=== PATIENT | female | born 1935 | race Caucasian/White ===

== ENCOUNTER 2017-11-03 15:08 | Emergency (ER) | payer MEDICARE, MEDICAID ==
[~2017-11-03] VITALS: Ht 162.6 cm; Wt 80.0 kg
[~2017-11-03 15:08] MED LIST: ALB0.5UD IH; ALLO100T PO; CALC-723 PO; CARV25TA2 PO; CITA-311 PO; COU1T PO; FLUT1BLS3 INH; FURO-150 PO; GLIP5TAB13 PO; LISI-600 PO; OMEG10006 PO; PAT0.1OS OP; POTA8CAP9 PO; SIMV20TA5 PO; VIT1CAPS9 PO; XAL0.005OS OP
[2017-11-03] MEDS ORDERED: bacitracin 15gm ointment TP ONE (15:25)
[2017-11-03 17:13] VITALS: BP 189/113
== END 2017-11-03 17:16 | disposition home or self-care (01) ==
LOC: ER 15:09
DX: S00.01XA Abrasion of scalp, initial encounter (principal); M54.2 Cervicalgia; I48.91 Unspecified atrial fibrillation; I50.9 Heart failure, unspecified; E11.9 Type 2 diabetes mellitus without complications; M19.90 Unspecified osteoarthritis, unspecified site; Z90.49 Acquired absence of other specified parts of digestive tract; Z88.2 Allergy status to sulfonamides; Z88.0 Allergy status to penicillin; Z86.73 Personal history of transient ischemic attack (TIA), and cerebral infarction without residual deficits; Z79.899 Other long term (current) drug therapy; Z79.01 Long term (current) use of anticoagulants; W18.30XA Fall on same level, unspecified, initial encounter; Y93.01 Activity, walking, marching and hiking; Y92.89 Other specified places as the place of occurrence of the external cause; Y99.9 Unspecified external cause status
CPT/HCPCS: 70450; 72125; 82948; 93005; 99284; A6449

== ENCOUNTER 2019-05-20 10:53 | Emergency (ER) | payer MEDICARE, MEDICAID ==
[~2019-05-20] VITALS: Ht 154.9 cm; Wt 71.7 kg
[~2019-05-20 10:53] MED LIST changes: +POTA8CAP20 PO; -POTA8CAP9 PO
--- NOTE | 2019-05-20 11:40 | NUR ---
BACK FROM CT
--- NOTE | 2019-05-20 12:17 | NUR ---
BREAK NOTE:PATIENT RECEIVED ON BED AWAKE,VISITOR AT BEDSIDE.
[2019-05-20 12:22] VITALS: BP 175/72
== END 2019-05-20 13:01 | disposition home or self-care (01) ==
LOC: ER 10:54
DX: S11.81XA Laceration without foreign body of other specified part of neck, initial encounter (principal); S09.8XXA Other specified injuries of head, initial encounter; M25.551 Pain in right hip; M25.562 Pain in left knee; I48.91 Unspecified atrial fibrillation; I50.9 Heart failure, unspecified; E11.9 Type 2 diabetes mellitus without complications; M19.90 Unspecified osteoarthritis, unspecified site; Z88.2 Allergy status to sulfonamides; Z86.73 Personal history of transient ischemic attack (TIA), and cerebral infarction without residual deficits; Z88.0 Allergy status to penicillin; Z79.899 Other long term (current) drug therapy; Z90.49 Acquired absence of other specified parts of digestive tract; W18.09XA Striking against other object with subsequent fall, initial encounter; Y93.89 Activity, other specified; Y92.89 Other specified places as the place of occurrence of the external cause; Y99.8 Other external cause status
CPT/HCPCS: 70450; 73502; 73564; 93005; 99284

== ENCOUNTER 2022-10-04 09:00 | Emergency (ER) | payer MEDICARE, MEDICAID ==
[~2022-10-04] VITALS: Ht 154.9 cm; Wt 63.5 kg
[~2022-10-04 09:00] MED LIST changes: +ACET325T55 PO; -ALLO100T PO; +CHOL20002 PO; +CLON0.1T2 PO; -COU1T PO; +FLUT1AER PO; -FLUT1BLS3 INH; +GABA-530 PO; -GLIP5TAB13 PO; +GLIP5TAB26 PO; +LATA2.5D14 OP; -LISI-600 PO; +NOR5T PO; -OMEG10006 PO; -PAT0.1OS OP; +ROBDML PO; +SIMV-42 PO; -SIMV20TA5 PO; +WARF3TAB56 PO; -XAL0.005OS OP; +ZAFI10TA2 PO
--- NOTE | 2022-10-04 09:32 | NUR ---
to ct scan.
[2022-10-04 09:40] LABS: BASOPHILS # (AUTO) 0.1 X10'3 (0-0.2); BASOPHILS % (AUTO) 0.6 % (0-1); EOSINOPHILS # (AUTO) 0.5 X10'3 (0-0.9); EOSINOPHILS % (AUTO) 4.5 % (0-6); HEMATOCRIT 36.4 % (35.0-45.0); HEMOGLOBIN 11.9 g/dl (12.0-16.0); LYMPHOCYTES # (AUTO) 0.7 X10'3 (1.1-4.8); LYMPHOCYTES % (AUTO) 6.5 % (21-51); MEAN CORPUSCULAR HEMOGLOBIN 31.5 PG (27.0-31.0); MEAN CORPUSCULAR HGB CONC 32.6 g/dL (33.0-36.5); MEAN CORPUSCULAR VOLUME 96.5 FL (78-98); MEAN PLATELET VOLUME 7.8 FL (7.4-10.4); MONOCYTES # (AUTO) 0.8 X10'3 (0-0.9); MONOCYTES % (AUTO) 7.5 % (2-12); NEUTROPHILS # (AUTO) 8.5 X10'3 (1.8-7.7); NEUTROPHILS % (AUTO) 80.9 % (42-75); PLATELET COUNT 247 X10'3 (140-440); RED BLOOD COUNT 3.77 X10'6 (4.20-5.60); WHITE BLOOD COUNT 10.5 X10'3 (4.5-11.0)
[2022-10-04 09:52] LABS: ALANINE AMINOTRANSFERASE 13 U/L (12-78); ALBUMIN 3.2 G/DL (3.4-5.0); ALBUMIN/GLOBULIN RATIO 0.7 (1.1-1.5); ALKALINE PHOSPHATASE 103 IU/L (46-116); ANION GAP 10 (8-16); ASPARTATE AMINO TRANSFERASE 16 U/L (10-37); BILIRUBIN,TOTAL 0.4 MG/DL (0.1-1.0); BLOOD UREA NITROGEN 56 MG/DL (7-18); BUN/CREATININE RATIO 26.7 (6.6-38.0); CALCIUM 9.4 MG/DL (8.5-10.1); CHLORIDE 112 MMOL/L (99-107); GLUCOSE 108 MG/DL (70-104); POTASSIUM 4.1 MMOL/L (3.5-5.1); SODIUM 143 MMOL/L (135-145); TOTAL CARBON DIOXIDE 20.6 MMOL/L (24-32); TOTAL PROTEIN 7.9 G/DL (6.4-8.2); eGFR 22 ML/MIN
[2022-10-04] MEDS ORDERED: acetaminophen 325mg tablet PO ONE (11:10)
[2022-10-04] MEDS ORDERED: gelatin sponge, absorbable (Gelfoam 12-7MM) sponge TP ONE (11:55)
--- NOTE | 2022-10-04 12:15 | NUR ---
INFORMED DR HARDING THAT THERE IS NO ORDER FOR URINE ,PT HAS FREQUENT URINATION ? PER MD ITS NOT NEEDED.
[2022-10-04 13:29] VITALS: BP 147/65
== END 2022-10-04 13:37 | disposition home or self-care (01) ==
LOC: ER 09:01
DX: S00.81XA Abrasion of other part of head, initial encounter (principal); E11.9 Type 2 diabetes mellitus without complications; Z88.2 Allergy status to sulfonamides; Z88.0 Allergy status to penicillin; Z79.899 Other long term (current) drug therapy; Z88.8 Allergy status to other drugs, medicaments and biological substances; I11.0 Hypertensive heart disease with heart failure; W18.39XA Other fall on same level, initial encounter; Y93.89 Activity, other specified; Y92.89 Other specified places as the place of occurrence of the external cause; Y99.8 Other external cause status
CPT/HCPCS: 36415; 70450; 70486; 72125; 80053; 85025; 85610; 93005; 99285; A6222; A6258

== ENCOUNTER 2023-01-05 12:40 | Emergency (ER) | payer MEDICARE, MEDICAID ==
[~2023-01-05] VITALS: Ht 156.2 cm; Wt 56.4 kg
[~2023-01-05 12:40] MED LIST changes: -ALB0.5UD IH; +ALBU2.5V10 NEB; -CITA-311 PO; +CITA10TA22 PO; -CLON0.1T2 PO; -FLUT1AER PO; -FURO-150 PO; +FURO20TA4 PO; -GLIP5TAB26 PO; +HYDR28.316 RC; +IPRA3AMP31 NEB; +LATA2.5D14 EACHEYE; -LATA2.5D14 OP; +LISI10TA27 PO; -NOR5T PO; -POTA8CAP20 PO; +POTA8TAB69 PO; -ROBDML PO; -SIMV-42 PO; +SIMV-45 PO; +SODI325T PO; +WARF3TAB8 PO; +hyDRALAzine tablet PO
[2023-01-05 13:38] LABS: BASOPHILS # (AUTO) 0.1 X10'3 (0-0.2); EOSINOPHILS # (AUTO) 0.3 X10'3 (0-0.9); EOSINOPHILS % (AUTO) 5.8 % (0-6); HEMOGLOBIN 10.3 g/dl (12.0-16.0); LYMPHOCYTES # (AUTO) 0.5 X10'3 (1.1-4.8); LYMPHOCYTES % (AUTO) 8.9 % (21-51); MEAN CORPUSCULAR HEMOGLOBIN 31.9 PG (27.0-31.0); MEAN CORPUSCULAR HGB CONC 32.2 g/dL (33.0-36.5); MEAN CORPUSCULAR VOLUME 99.2 FL (78-98); MEAN PLATELET VOLUME 7.9 FL (7.4-10.4); MONOCYTES # (AUTO) 0.5 X10'3 (0-0.9); MONOCYTES % (AUTO) 9.6 % (2-12); NEUTROPHILS # (AUTO) 4.1 X10'3 (1.8-7.7); NEUTROPHILS % (AUTO) 74.7 % (42-75); PLATELET COUNT 209 X10'3 (140-440); RED BLOOD COUNT 3.23 X10'6 (4.20-5.60); RED CELL DISTRIBUTION WIDTH 16.6 % (11.5-14.5); WHITE BLOOD COUNT 5.5 X10'3 (4.5-11.0)
[2023-01-05 13:41] LABS: ALANINE AMINOTRANSFERASE 16 U/L (12-78); ALBUMIN/GLOBULIN RATIO 0.8 (1.1-1.5); ALKALINE PHOSPHATASE 90 IU/L (46-116); ANION GAP 8 (8-16); ASPARTATE AMINO TRANSFERASE 21 U/L (10-37); BILIRUBIN,TOTAL 0.5 MG/DL (0.1-1.0); BLOOD UREA NITROGEN 28 MG/DL (7-18); BUN/CREATININE RATIO 18.3 (10.0-20.0); CHLORIDE 105 MMOL/L (99-107); CREATININE 1.53 MG/DL (0.40-0.90); GLUCOSE 99 MG/DL (70-104); POTASSIUM 4.1 MMOL/L (3.5-5.1); SODIUM 142 MMOL/L (135-145); TOTAL CARBON DIOXIDE 28.8 MMOL/L (24-32); TOTAL PROTEIN 6.8 G/DL (6.4-8.2); eGFR 32 ML/MIN
--- NOTE | 2023-01-05 14:21 | NUR ---
Dr. Freeman at [facility].
[2023-01-05] MEDS ORDERED: ipratropium/albuterol 3ml nebule NEB ONE (15:10)
[2023-01-05 17:09] VITALS: BP 141/69
== END 2023-01-05 17:09 | disposition home or self-care (01) ==
LOC: ER 12:41
DX: J44.1 Chronic obstructive pulmonary disease with (acute) exacerbation (principal); I50.9 Heart failure, unspecified; E11.9 Type 2 diabetes mellitus without complications; Z88.8 Allergy status to other drugs, medicaments and biological substances; Z88.0 Allergy status to penicillin; Z88.1 Allergy status to other antibiotic agents; Z79.899 Other long term (current) drug therapy; Z79.1 Long term (current) use of non-steroidal anti-inflammatories (NSAID); Z79.2 Long term (current) use of antibiotics
CPT/HCPCS: 36415; 71045; 80053; 83880; 84484; 85025; 93005; 94640; 94760; 99285

== ENCOUNTER 2023-02-14 12:28 | Inpatient (IN) | payer MEDICARE, MEDICAID ==
[~2023-02-14] VITALS: Ht 156.2 cm; Wt 60.9 kg
[2023-02-14 12:54] LABS: BASOPHILS # (AUTO) 0.1 X10'3 (0-0.2); BASOPHILS % (AUTO) 0.8 % (0-1); EOSINOPHILS # (AUTO) 0.1 X10'3 (0-0.9); EOSINOPHILS % (AUTO) 1.7 % (0-6); HEMATOCRIT 30.5 % (35.0-45.0); HEMOGLOBIN 9.8 g/dl (12.0-16.0); LYMPHOCYTES # (AUTO) 0.3 X10'3 (1.1-4.8); LYMPHOCYTES % (AUTO) 4.2 % (21-51); MEAN CORPUSCULAR HEMOGLOBIN 30.8 PG (27.0-31.0); MEAN CORPUSCULAR VOLUME 96.1 FL (78-98); MEAN PLATELET VOLUME 7.8 FL (7.4-10.4); MONOCYTES # (AUTO) 0.9 X10'3 (0-0.9); NEUTROPHILS # (AUTO) 6.8 X10'3 (1.8-7.7); NEUTROPHILS % (AUTO) 82.3 % (42-75); PLATELET COUNT 184 X10'3 (140-440); RED BLOOD COUNT 3.17 X10'6 (4.20-5.60); RED CELL DISTRIBUTION WIDTH 15.6 % (11.5-14.5); WHITE BLOOD COUNT 8.2 X10'3 (4.5-11.0)
[2023-02-14] MEDS ORDERED: ipratropium/albuterol 3ml nebule NEB ONE (13:10)
[2023-02-14 13:15] LABS: ALANINE AMINOTRANSFERASE 12 U/L (12-78); ALBUMIN 2.7 G/DL (3.4-5.0); ALBUMIN/GLOBULIN RATIO 0.7 (1.1-1.5); ALKALINE PHOSPHATASE 107 IU/L (46-116); ANION GAP 7 (8-16); ASPARTATE AMINO TRANSFERASE 15 U/L (10-37); BILIRUBIN,TOTAL 0.5 MG/DL (0.1-1.0); BLOOD UREA NITROGEN 44 MG/DL (7-18); BUN/CREATININE RATIO 23.8 (10.0-20.0); CALCIUM 8.6 MG/DL (8.5-10.1); CHLORIDE 107 MMOL/L (99-107); CREATININE 1.85 MG/DL (0.40-0.90); GLUCOSE 119 MG/DL (70-104); POTASSIUM 3.7 MMOL/L (3.5-5.1); SODIUM 142 MMOL/L (135-145); TOTAL CARBON DIOXIDE 27.6 MMOL/L (24-32); TOTAL PROTEIN 6.4 G/DL (6.4-8.2); eGFR 26 ML/MIN
--- NOTE | 2023-02-14 13:22 | NUR ---
RT AT BEDSIDE TO PROVIDE BREATHING TX.
[2023-02-14] MEDS ORDERED: CefTRIAXone 2gm/D5W 50ml BAG 50 ML IV ONE (13:50)
[2023-02-14] MEDS ORDERED: methylPREDNISolone sod succ 125mg/2ml vial IV ONE (13:55)
[2023-02-14] MEDS ORDERED: methylPREDNISolone sod succ/PF 40mg inj. IV ONE (13:55)
[2023-02-14] MEDS ORDERED: potassium Cl 20 mEq SR tablet PO PRN ×4 (14:00→14:05)
[2023-02-14] MEDS ORDERED: mag hydrox/Alum hydrox/simeth 30ml oral suspension PO PRN (14:00)
[2023-02-14] MEDS ORDERED: HYDROcodone/acetaminophen 5mg/325mg tablet PO PRN (14:00)
[2023-02-14] MEDS ORDERED: ondansetron/PF 4mg/2ml inj IV PRN ×2 (14:00→14:05)
[2023-02-14] MEDS ORDERED: magnesium 4gm in 100ml NS 100 ML IV PRN ×2 (14:00→14:05)
[2023-02-14] MEDS ORDERED: potassium Cl 40MEQ/1/2NS 520ml 520 ML IV PRN ×2 (14:00→14:05)
[2023-02-14] MEDS ORDERED: magnesium hydroxide 30ml (MOM) UD suspension PO PRN (14:00)
[2023-02-14] MEDS ORDERED: magnesium Cl slow-release 64mg tablet PO PRN ×2 (14:00→14:05)
[2023-02-14] MEDS ORDERED: acetaminophen 325mg tablet PO PRN ×3 (14:00→14:05)
[2023-02-14] MEDS ORDERED: magnesium 2GM in 50ml NS 50 ML IV PRN ×2 (14:00→14:05)
[2023-02-14] MEDS ORDERED: morphine 2 MG/ML inj. syringe IV PRN (14:00)
[2023-02-14] MEDS ORDERED: HYDROcodone/acetaminophen 10/325mg tab PO PRN (14:00)
[2023-02-14 14:10] LABS: CLARITY,URINE TURBID (Clear); COLOR,URINE YELLOW (Yellow); GLUCOSE, URINE NEGATIVE (Neg); KETONES,URINE NEGATIVE (Neg); LEUKOCYTE ESTERASE ,URINE LARGE (Neg); NITRITES, URINE NEGATIVE (Neg); OCCULT BLOOD,URINE LARGE (Neg); PROTEIN,URINE >=300 mg/dl (Neg); UROBILINOGEN,URINE 0.2 E.U/dL (0.2-1.0)
[2023-02-14 14:12] LABS: UA COLLECTION TYPE STRAIGHT CATH
[2023-02-14 14:19] LABS: BACTERIA,URINE 4+ /HPF (Neg); MUCUS STRANDS NONE SEEN /LPF (Neg); RENAL CELLS, URINE FEW /HPF; SQUAMOUS EPITHELIAL CELL,UR NONE SEEN /LPF (FEW); WBC CLUMPS,URINE MANY /HPF (NEGATIVE); WBC,URINE TNTC /HPF (0-4)
--- NOTE | 2023-02-14 15:06 | NUR ---
CALL TO LAB STATING BLOOD CULTURES WERE CANCELLED.
[2023-02-14] MEDS: methylPREDNISolone sod succ/PF 40mg inj. IV SCH ×2 (15:09→21:01)
[2023-02-14 19:20] VITALS: BP 162/85
[2023-02-14] MEDS ORDERED: enoxaparin 40mg/0.4ml syringe SQ SCH (20:00)
[2023-02-14] MEDS: K and/or MAG REPLACEMENT MC SCH (20:00)
[2023-02-14] MEDS: docusate sod 100mg capsule PO SCH (20:00)
[2023-02-14] MEDS ORDERED: FURO40TA4 PO (20:18)
[2023-02-14] MEDS ORDERED: ASCO500T28 PO (20:18)
[2023-02-14] MEDS ORDERED: OMEG-167 PO (20:18)
[2023-02-14] MEDS ORDERED: PROCHC RC (20:18)
[2023-02-14] MEDS ORDERED: HYDR-4069 PO (20:18)
[2023-02-14] MEDS ORDERED: FLUO60SO3 EACH EAR (20:18)
[2023-02-14] MEDS ORDERED: FURO-150 PO (20:18)
[2023-02-14] MEDS ORDERED: BUDE0.5A11 NEB (20:18)
[2023-02-14] MEDS ORDERED: warfarin 3mg tablet PO ONE (21:00)
[2023-02-14 22:00] VITALS: BP 179/74
[2023-02-14] MEDS: carvedilol 6.25mg tablet PO SCH (22:49)
[2023-02-14] MEDS: lisinopril 10 MG tablet PO SCH (22:50)
[2023-02-14] MEDS: hyDRALAzine 10mg tablet PO SCH (23:47)
[2023-02-14 23:51] VITALS: BP 174/93
[2023-02-15] MEDS: methylPREDNISolone sod succ/PF 40mg inj. IV SCH ×4 (01:48→22:34)
[2023-02-15 01:54] VITALS: BP 163/77
--- NOTE | 2023-02-15 06:29 | NUR ---
Problems reprioritized. Patient report given, questions answered & plan of care reviewed with KARINA AGUILAR RN.
--- NOTE | 2023-02-15 06:37 | NUR ---
Patient in room [facility] 4022. I have received report from ALDO COLLINS and had the opportunity to ask questions and assume patient care.
[2023-02-15 07:03] VITALS: BP 148/88
[2023-02-15 07:54] LABS: BASOPHILS % (AUTO) 0.1 % (0-1); EOSINOPHILS % (AUTO) 0.1 % (0-6); HEMATOCRIT 33.1 % (35.0-45.0); HEMOGLOBIN 10.5 g/dl (12.0-16.0); LYMPHOCYTES # (AUTO) 0.2 X10'3 (1.1-4.8); LYMPHOCYTES % (AUTO) 4.7 % (21-51); MEAN CORPUSCULAR HEMOGLOBIN 30.6 PG (27.0-31.0); MEAN CORPUSCULAR HGB CONC 31.8 g/dL (33.0-36.5); MEAN CORPUSCULAR VOLUME 96.2 FL (78-98); MEAN PLATELET VOLUME 8.1 FL (7.4-10.4); MONOCYTES % (AUTO) 0.7 % (2-12); NEUTROPHILS # (AUTO) 4.6 X10'3 (1.8-7.7); NEUTROPHILS % (AUTO) 94.4 % (42-75); PLATELET COUNT 177 X10'3 (140-440); RED BLOOD COUNT 3.44 X10'6 (4.20-5.60); RED CELL DISTRIBUTION WIDTH 15.8 % (11.5-14.5); WHITE BLOOD COUNT 4.9 X10'3 (4.5-11.0)
[2023-02-15] MEDS ORDERED: enoxaparin 40mg/0.4ml syringe SUBCUT SCH (08:00)
[2023-02-15] MEDS ORDERED: furosemide 40mg/4ml inj IV SCH (08:00)
[2023-02-15] MEDS: K and/or MAG REPLACEMENT MC SCH ×2 (08:00→20:00)
[2023-02-15] MEDS: furosemide 20 MG/2 ML vial IV SCH (08:07)
[2023-02-15] MEDS: CefTRIAXone/D5W-Rocephin 1gm 50 ML IV SCH (08:08)
[2023-02-15] MEDS: hyDRALAzine 10mg tablet PO SCH ×3 (08:09→23:55)
[2023-02-15] MEDS: docusate sod 100mg capsule PO SCH ×2 (08:09→20:00)
[2023-02-15] MEDS: lisinopril 10 MG tablet PO SCH ×3 (08:10→22:25)
[2023-02-15] MEDS: carvedilol 6.25mg tablet PO SCH ×2 (08:10→20:00)
[2023-02-15 08:16] LABS: ALANINE AMINOTRANSFERASE 16 U/L (12-78); ALBUMIN 2.7 G/DL (3.4-5.0); ALBUMIN/GLOBULIN RATIO 0.6 (1.1-1.5); ALKALINE PHOSPHATASE 115 IU/L (46-116); ANION GAP 11 (8-16); ASPARTATE AMINO TRANSFERASE 17 U/L (10-37); BILIRUBIN,TOTAL 0.4 MG/DL (0.1-1.0); BLOOD UREA NITROGEN 43 MG/DL (7-18); CALCIUM 8.8 MG/DL (8.5-10.1); CHLORIDE 105 MMOL/L (99-107); CREATININE 1.72 MG/DL (0.40-0.90); FERRITIN 322 NG/ML (8-252); GLUCOSE 171 MG/DL (70-104); POTASSIUM 4.2 MMOL/L (3.5-5.1); SODIUM 142 MMOL/L (135-145); TOTAL CARBON DIOXIDE 26.3 MMOL/L (24-32); eGFR 28 ML/MIN
[2023-02-15] MEDS ORDERED: ipratropium/albuterol 3ml nebule NEB PRN (08:45)
[2023-02-15] MEDS ORDERED: warfarin 3mg tablet PO SCH ×2 (08:45)
[2023-02-15] MEDS ORDERED: iron dextran complex inj. 25 MG in normal saline 50ml IV soln 49.5 ML IV ONE (09:05)
[2023-02-15 09:06] LABS: % IRON SATURATION 7 % (11-46); IRON 17 UG/DL (49-151); TOTAL IRON BINDING CAPACITY 239 UG/DL (259-388)
[2023-02-15] MEDS: OMEGA-3/DHA/EPA/FISH OIL 1 EACH CAPSULE.DR PO SCH (10:15)
[2023-02-15] MEDS: calcium carbonate/vitamin D3 tablet PO SCH ×2 (10:16→22:23)
[2023-02-15] MEDS: atorvastatin 20mg tablet PO SCH (10:16)
[2023-02-15] MEDS: carVEDilol 12.5mg tablet PO SCH ×2 (10:17→22:23)
[2023-02-15] MEDS: sodium bicarbonate 650mg tablet PO SCH (10:17)
[2023-02-15 10:29] VITALS: BP 123/74
[2023-02-15] MEDS: hydrALAZINE 25 MG tablet PO SCH ×2 (13:19→22:26)
[2023-02-15] MEDS ORDERED: furosemide 20MG tablet PO SCH (16:00)
--- NOTE | 2023-02-15 16:40 | NUR ---
DM Consult: Pt hx DM though A1C 6.3% currently on Na-restricted diet per EMR; A1C appropriate per ADA guidelines recommend no carb restriction especially given age at this time. Addendum: 02/15/23 at [address] Amended: Links added.
[2023-02-15 18:30] VITALS: BP 171/78
--- NOTE | 2023-02-15 18:40 | NUR ---
Patient in room [facility]TH[facility] 4022. I have received report from Reji COLLINS and Davidson RN and had the opportunity to ask questions and assume patient care.
--- NOTE | 2023-02-15 18:46 | NUR ---
Problems reprioritized. Patient report given TO CODY COLLINS, questions answered & plan of care reviewed with .
[2023-02-15] MEDS: ZAFIRLUKAST 10 MG PO SCH (21:00)
[2023-02-15] MEDS ORDERED: warfarin 3mg tablet PO ONE (21:00)
[2023-02-15 22:00] VITALS: BP 195/114
[2023-02-15] MEDS: ascorbic acid 500mg tablet PO SCH (22:24)
[2023-02-15] MEDS: gabapentin 100mg capsule PO SCH (22:29)
[2023-02-15] MEDS: latanoprost 0.005% 2.5ml ophthalmic drops EACHEYE SCH (22:40)
[2023-02-15] MEDS: hydrocort. acetate/pramoxine 10gm bottle RC SCH (22:41)
[2023-02-15] MEDS: HALLS - SOOTHE MENTHOL 1.8 MG cough drop LOZENGE MM PRN (23:47)
[2023-02-16 02:00] VITALS: BP 187/88
[2023-02-16] MEDS: methylPREDNISolone sod succ/PF 40mg inj. IV SCH ×4 (02:12→22:38)
[2023-02-16] MEDS ORDERED: lisinopril 10 MG tablet PO ONE (02:45)
[2023-02-16 06:00] VITALS: BP 179/83
[2023-02-16 06:13] LABS: BASOPHILS % (AUTO) 0 % (0-1); EOSINOPHILS % (AUTO) 0 % (0-6); HEMATOCRIT 34.3 % (35.0-45.0); HEMOGLOBIN 11.1 g/dl (12.0-16.0); LYMPHOCYTES # (AUTO) 0.2 X10'3 (1.1-4.8); MEAN CORPUSCULAR HEMOGLOBIN 30.8 PG (27.0-31.0); MEAN CORPUSCULAR HGB CONC 32.2 g/dL (33.0-36.5); MEAN CORPUSCULAR VOLUME 95.5 FL (78-98); MEAN PLATELET VOLUME 8.1 FL (7.4-10.4); MONOCYTES # (AUTO) 0.2 X10'3 (0-0.9); NEUTROPHILS # (AUTO) 7.9 X10'3 (1.8-7.7); PLATELET COUNT 203 X10'3 (140-440); RED BLOOD COUNT 3.59 X10'6 (4.20-5.60); RED CELL DISTRIBUTION WIDTH 15.4 % (11.5-14.5); WHITE BLOOD COUNT 8.3 X10'3 (4.5-11.0)
[2023-02-16 06:37] LABS: ALANINE AMINOTRANSFERASE 18 U/L (12-78); ALBUMIN 2.7 G/DL (3.4-5.0); ALBUMIN/GLOBULIN RATIO 0.6 (1.1-1.5); ALKALINE PHOSPHATASE 115 IU/L (46-116); ANION GAP 8 (8-16); ASPARTATE AMINO TRANSFERASE 18 U/L (10-37); BILIRUBIN,TOTAL 0.4 MG/DL (0.1-1.0); BLOOD UREA NITROGEN 52 MG/DL (7-18); BUN/CREATININE RATIO 31.1 (10.0-20.0); CHLORIDE 101 MMOL/L (99-107); CREATININE 1.67 MG/DL (0.40-0.90); GLUCOSE 227 MG/DL (70-104); SODIUM 137 MMOL/L (135-145); TOTAL CARBON DIOXIDE 27.8 MMOL/L (24-32); TOTAL PROTEIN 7.2 G/DL (6.4-8.2); eGFR 29 ML/MIN
--- NOTE | 2023-02-16 07:00 | NUR ---
Problems reprioritized. Patient report given, questions answered & plan of care reviewed with Kaykay Thomas.
--- NOTE | 2023-02-16 07:56 | NUR ---
Patient in room [facility]TH[facility] 4022B. I have received report from KARINA ROSS and had the opportunity to ask questions and assume patient care.
[2023-02-16] MEDS ORDERED: ZINC PO SCH (08:00)
[2023-02-16] MEDS ORDERED: COPPER PO SCH (08:00)
[2023-02-16] MEDS ORDERED: VIT E PO SCH (08:00)
[2023-02-16] MEDS ORDERED: VIT C PO SCH (08:00)
[2023-02-16] MEDS ORDERED: furosemide 40mg tablet PO SCH (08:00)
[2023-02-16] MEDS ORDERED: VIT A PO SCH (08:00)
[2023-02-16] MEDS: K and/or MAG REPLACEMENT MC SCH ×2 (08:00→20:00)
[2023-02-16 10:00] VITALS: BP 190/92
[2023-02-16] MEDS: CefTRIAXone/D5W-Rocephin 1gm 50 ML IV SCH (10:47)
[2023-02-16] MEDS: docusate sod 100mg capsule PO SCH ×2 (10:49→20:00)
[2023-02-16] MEDS: OMEGA-3/DHA/EPA/FISH OIL 1 EACH CAPSULE.DR PO SCH (10:49)
[2023-02-16] MEDS: atorvastatin 20mg tablet PO SCH (10:49)
[2023-02-16] MEDS: CITALOpram 10mg tablet PO SCH (10:49)
[2023-02-16] MEDS: potassium chloride 8mEq ER tablet PO SCH (10:49)
[2023-02-16] MEDS: ascorbic acid 500mg tablet PO SCH ×2 (10:49→22:45)
[2023-02-16] MEDS: calcium carbonate/vitamin D3 tablet PO SCH ×2 (10:49→22:45)
[2023-02-16] MEDS: furosemide 20 MG/2 ML vial IV SCH (11:02)
[2023-02-16] MEDS: hydrALAZINE 25 MG tablet PO SCH ×3 (11:02→22:42)
[2023-02-16] MEDS: lisinopril 10 MG tablet PO SCH ×2 (11:02→22:47)
[2023-02-16] MEDS: carVEDilol 12.5mg tablet PO SCH ×2 (11:03→22:40)
[2023-02-16] MEDS: hydrocort. acetate/pramoxine 10gm bottle RC SCH ×2 (11:18→22:48)
[2023-02-16] MEDS: iron dextran complex inj. 100 MG in normal saline 100ml IV soln 98 ML IV SCH (13:06)
--- NOTE | 2023-02-16 13:34 | NUR ---
PRESSURE ULCER EDUCATION: DEFINITION: A pressure ulcer is an area of skin that breaks down when you stay in one position too long. The constant pressure against the skin reduces the blood flow to that area and the affected tissue dies. CAUSES: "Being bedridden or in a wheelchair "Fragile skin "Having a chronic condition, such as diabetes or vascular disease "Inability to move certain parts of your body without assistance "Older age "Incontinence of urine or stool SYMPTOMS: "A reddened area that DOES NOT turn white when pressed on - this can be the beginning of a pressure ulcer "A blister, deep sore or a crater - these can be advanced pressure ulcers FIRST AID: "Relieve the pressure on this area "Keep the area clean and dry "Call your primary doctor if you see any of the above symptoms "DO NOT massage the area "DO NOT use a donut shaped or ring shaped pillow- these actually interfere with the blood flow and cause complications PREVENTION: "Check for pressure ulcers everyday "Change position at least every two hours to relieve pressure "Use items that help relieve pressure- pillows, sheepskin, foam padding, and powders. "Keep skin clean and dry "Eat healthy well balanced meals "Exercise daily IF YOU SEE ANY OF THESE SYMPTOMS WHILE IN THE HOSPITAL - TELL YOUR NURSE IMMEDIATELY. IF YOU SEE ANY OF THESE SYMPTOMS WHILE AT HOME OR HAVE ANY QUESTIONS OR CONCERNS ABOUT PRESSURE ULCERS - CALL YOUR PRIMARY DOCTOR IMMEDIATELY. Addendum: 02/16/23 at 1334 by Kaleb Obregon RN Amended: Links added.
[2023-02-16 16:16] VITALS: BP 160/102
[2023-02-16] MEDS: cholecalciferol (vitamin D3) 1,000 unit (25mcg) tablet PO SCH (16:16)
[2023-02-16] MEDS: sodium bicarbonate 650mg tablet PO SCH (16:16)
[2023-02-16 18:00] VITALS: BP 174/62
--- NOTE | 2023-02-16 18:38 | NUR ---
Problems reprioritized. Patient report given, questions answered & plan of care reviewed with KARINA ROSS.
--- NOTE | 2023-02-16 18:40 | NUR ---
Patient in room [facility]TH[facility] 4022. I have received report from Kaykay COLLINS and had the opportunity to ask questions and assume patient care.
[2023-02-16] MEDS ORDERED: warfarin 3mg tablet PO ONE (21:00)
[2023-02-16 22:00] VITALS: BP 195/106
[2023-02-16] MEDS: gabapentin 100mg capsule PO SCH (22:45)
[2023-02-16] MEDS: latanoprost 0.005% 2.5ml ophthalmic drops EACHEYE SCH (22:47)
[2023-02-16] MEDS: HALLS - SOOTHE MENTHOL 1.8 MG cough drop LOZENGE MM PRN (22:48)
[2023-02-16] MEDS: ZAFIRLUKAST 10 MG PO SCH (22:54)
[2023-02-16] MEDS: acetaminophen 325mg tablet PO PRN (22:56)
[2023-02-17] VITALS (7 sets, daily range): BP systolic 162–192; BP diastolic 71–98
[2023-02-17] MEDS: methylPREDNISolone sod succ/PF 40mg inj. IV SCH ×4 (02:28→16:00)
[2023-02-17] MEDS ORDERED: hyDRALAzine 10mg tablet PO ONE (05:40)
[2023-02-17 06:26] LABS: BASOPHILS % (AUTO) 0.2 % (0-1); EOSINOPHILS % (AUTO) 0 % (0-6); HEMATOCRIT 33.5 % (35.0-45.0); HEMOGLOBIN 10.8 g/dl (12.0-16.0); LYMPHOCYTES # (AUTO) 0.1 X10'3 (1.1-4.8); LYMPHOCYTES % (AUTO) 1.7 % (21-51); MEAN CORPUSCULAR HEMOGLOBIN 30.5 PG (27.0-31.0); MEAN CORPUSCULAR HGB CONC 32.2 g/dL (33.0-36.5); MEAN CORPUSCULAR VOLUME 94.8 FL (78-98); MEAN PLATELET VOLUME 8.1 FL (7.4-10.4); MONOCYTES # (AUTO) 0.1 X10'3 (0-0.9); MONOCYTES % (AUTO) 1.6 % (2-12); NEUTROPHILS # (AUTO) 8.4 X10'3 (1.8-7.7); NEUTROPHILS % (AUTO) 96.5 % (42-75); PLATELET COUNT 209 X10'3 (140-440); RED BLOOD COUNT 3.54 X10'6 (4.20-5.60); RED CELL DISTRIBUTION WIDTH 15.3 % (11.5-14.5); WHITE BLOOD COUNT 8.7 X10'3 (4.5-11.0)
[2023-02-17 06:42] LABS: ALANINE AMINOTRANSFERASE 27 U/L (12-78); ALBUMIN 2.7 G/DL (3.4-5.0); ALBUMIN/GLOBULIN RATIO 0.7 (1.1-1.5); ALKALINE PHOSPHATASE 107 IU/L (46-116); ANION GAP 8 (8-16); ASPARTATE AMINO TRANSFERASE 20 U/L (10-37); BILIRUBIN,TOTAL 0.4 MG/DL (0.1-1.0); BLOOD UREA NITROGEN 58 MG/DL (7-18); BUN/CREATININE RATIO 39.2 (10.0-20.0); CALCIUM 9.4 MG/DL (8.5-10.1); CHLORIDE 101 MMOL/L (99-107); CREATININE 1.48 MG/DL (0.40-0.90); GLUCOSE 229 MG/DL (70-104); MAGNESIUM 2.1 MG/DL (1.5-2.4); POTASSIUM 4.1 MMOL/L (3.5-5.1); SODIUM 139 MMOL/L (135-145); TOTAL CARBON DIOXIDE 29.6 MMOL/L (24-32); TOTAL PROTEIN 6.8 G/DL (6.4-8.2); eGFR 33 ML/MIN
--- NOTE | 2023-02-17 06:45 | NUR ---
Problems reprioritized. Patient report given, questions answered & plan of care reviewed with Ghada COLLINS.
[2023-02-17] MEDS: sodium bicarbonate 650mg tablet PO SCH (08:00)
[2023-02-17] MEDS: CefTRIAXone/D5W-Rocephin 1gm 50 ML IV SCH (08:00)
[2023-02-17] MEDS: ascorbic acid 500mg tablet PO SCH ×2 (08:00→21:58)
[2023-02-17] MEDS: lisinopril 10 MG tablet PO SCH ×2 (08:00→21:59)
[2023-02-17] MEDS: calcium carbonate/vitamin D3 tablet PO SCH ×2 (08:00→21:58)
[2023-02-17] MEDS: K and/or MAG REPLACEMENT MC SCH ×2 (08:00→20:00)
[2023-02-17] MEDS: docusate sod 100mg capsule PO SCH ×2 (08:00→21:53)
[2023-02-17] MEDS: atorvastatin 20mg tablet PO SCH (08:00)
[2023-02-17] MEDS: OMEGA-3/DHA/EPA/FISH OIL 1 EACH CAPSULE.DR PO SCH (08:00)
[2023-02-17] MEDS: hydrALAZINE 25 MG tablet PO SCH ×3 (08:00→22:00)
[2023-02-17] MEDS: nystatin 15 GM powder TP SCH ×3 (08:00→22:03)
[2023-02-17] MEDS: potassium chloride 8mEq ER tablet PO SCH (08:00)
[2023-02-17] MEDS: hydrocort. acetate/pramoxine 10gm bottle RC SCH ×2 (08:00→22:03)
[2023-02-17] MEDS: carVEDilol 12.5mg tablet PO SCH ×2 (08:00→21:56)
[2023-02-17] MEDS: CITALOpram 10mg tablet PO SCH (08:00)
[2023-02-17] MEDS: ipratropium/albuterol 3ml nebule NEB PRN (08:14)
[2023-02-17] MEDS: furosemide 20 MG/2 ML vial IV SCH ×2 (08:15→21:49)
[2023-02-17] MEDS: iron dextran complex inj. 100 MG in normal saline 100ml IV soln 98 ML IV SCH (10:50)
[2023-02-17] MEDS: HALLS - SOOTHE MENTHOL 1.8 MG cough drop LOZENGE MM PRN ×2 (13:48→22:04)
[2023-02-17] MEDS: hydrALAZINE 20mg/ml inj. IV PRN (16:48)
--- NOTE | 2023-02-17 18:30 | NUR ---
Patient in room [facility]TH[facility] 4022. I have received report from Ghada COLLINS and had the opportunity to ask questions and assume patient care.
[2023-02-17] MEDS ORDERED: warfarin 1mg tablet PO ONE (21:00)
[2023-02-17] MEDS: gabapentin 100mg capsule PO SCH (22:02)
[2023-02-17] MEDS: ZAFIRLUKAST 10 MG PO SCH (22:02)
[2023-02-17] MEDS: latanoprost 0.005% 2.5ml ophthalmic drops EACHEYE SCH (22:05)
[2023-02-17] MEDS: acetaminophen 325mg tablet PO PRN (22:09)
[2023-02-18 00:32] VITALS: BP 166/84
[2023-02-18] MEDS: methylPREDNISolone sod succ/PF 40mg inj. IV SCH ×3 (00:34→16:16)
[2023-02-18] MEDS: hydrALAZINE 20mg/ml inj. IV PRN (00:37)
--- NOTE | 2023-02-18 06:20 | NUR ---
Patient report given to Socrates COLLINS
[2023-02-18 06:41] LABS: BASOPHILS % (AUTO) 0 % (0-1); EOSINOPHILS % (AUTO) 0 % (0-6); HEMATOCRIT 34.8 % (35.0-45.0); HEMOGLOBIN 11.3 g/dl (12.0-16.0); LYMPHOCYTES # (AUTO) 0.2 X10'3 (1.1-4.8); LYMPHOCYTES % (AUTO) 2.7 % (21-51); MEAN CORPUSCULAR HEMOGLOBIN 30.5 PG (27.0-31.0); MEAN CORPUSCULAR HGB CONC 32.4 g/dL (33.0-36.5); MEAN CORPUSCULAR VOLUME 94.3 FL (78-98); MEAN PLATELET VOLUME 8.2 FL (7.4-10.4); MONOCYTES # (AUTO) 0.1 X10'3 (0-0.9); MONOCYTES % (AUTO) 1.9 % (2-12); NEUTROPHILS # (AUTO) 6.8 X10'3 (1.8-7.7); NEUTROPHILS % (AUTO) 95.4 % (42-75); PLATELET COUNT 218 X10'3 (140-440); RED BLOOD COUNT 3.69 X10'6 (4.20-5.60); RED CELL DISTRIBUTION WIDTH 15.3 % (11.5-14.5); WHITE BLOOD COUNT 7.1 X10'3 (4.5-11.0)
[2023-02-18 07:15] LABS: ALANINE AMINOTRANSFERASE 39 U/L (12-78); ALBUMIN 2.8 G/DL (3.4-5.0); ALBUMIN/GLOBULIN RATIO 0.7 (1.1-1.5); ALKALINE PHOSPHATASE 102 IU/L (46-116); ANION GAP 5 (8-16); ASPARTATE AMINO TRANSFERASE 25 U/L (10-37); BILIRUBIN,TOTAL 0.5 MG/DL (0.1-1.0); BLOOD UREA NITROGEN 70 MG/DL (7-18); BUN/CREATININE RATIO 44.9 (10.0-20.0); CALCIUM 9.3 MG/DL (8.5-10.1); CHLORIDE 99 MMOL/L (99-107); CREATININE 1.56 MG/DL (0.40-0.90); GLUCOSE 261 MG/DL (70-104); MAGNESIUM 1.9 MG/DL (1.5-2.4); POTASSIUM 3.7 MMOL/L (3.5-5.1); SODIUM 140 MMOL/L (135-145); TOTAL CARBON DIOXIDE 35.6 MMOL/L (24-32); TOTAL PROTEIN 6.7 G/DL (6.4-8.2); eGFR 31 ML/MIN
[2023-02-18] MEDS: ipratropium/albuterol 3ml nebule NEB PRN (07:31)
[2023-02-18] MEDS: K and/or MAG REPLACEMENT MC SCH ×2 (08:00→20:00)
[2023-02-18] MEDS: OMEGA-3/DHA/EPA/FISH OIL 1 EACH CAPSULE.DR PO SCH (08:07)
[2023-02-18] MEDS: EMPAGLIFLOZIN 10 MG TABLET PO SCH (08:07)
[2023-02-18] MEDS: furosemide 20 MG/2 ML vial IV SCH (08:07)
[2023-02-18] MEDS: guaiFENesin ER 600mg tablet PO SCH ×2 (08:07→21:28)
[2023-02-18] MEDS: cholecalciferol (vitamin D3) 1,000 unit (25mcg) tablet PO SCH (08:08)
[2023-02-18] MEDS: CefTRIAXone/D5W-Rocephin 1gm 50 ML IV SCH (08:08)
[2023-02-18] MEDS: sodium bicarbonate 650mg tablet PO SCH (08:08)
[2023-02-18] MEDS: potassium chloride 8mEq ER tablet PO SCH (08:09)
[2023-02-18] MEDS: calcium carbonate/vitamin D3 tablet PO SCH ×2 (08:09→21:27)
[2023-02-18] MEDS: ascorbic acid 500mg tablet PO SCH ×2 (08:09→21:28)
[2023-02-18] MEDS: carVEDilol 12.5mg tablet PO SCH ×2 (08:09→21:27)
[2023-02-18] MEDS: docusate sod 100mg capsule PO SCH ×2 (08:09→21:28)
[2023-02-18] MEDS: CITALOpram 10mg tablet PO SCH (08:09)
[2023-02-18] MEDS: atorvastatin 20mg tablet PO SCH (08:09)
[2023-02-18] MEDS: nystatin 15 GM powder TP SCH ×3 (08:10→21:24)
[2023-02-18] MEDS: lisinopril 10 MG tablet PO SCH ×2 (08:10→21:28)
[2023-02-18] MEDS: hydrALAZINE 25 MG tablet PO SCH ×3 (08:10→21:29)
[2023-02-18] MEDS: hydrocort. acetate/pramoxine 10gm bottle RC SCH ×2 (08:12→21:26)
[2023-02-18] MEDS: HALLS - SOOTHE MENTHOL 1.8 MG cough drop LOZENGE MM PRN (08:12)
[2023-02-18] MEDS ORDERED: metolazone 2.5mg tablet PO SCH (08:30)
--- NOTE | 2023-02-18 11:38 | NUR ---
Noted pt initial intake ~40% avg Na-restricted diet meeting 64% kcal and 61% protein estimated needs given admit DX CHF and COPD exacerbation per EMR. BOLIVAR d/w RN and MD recommends Ensure Enlive BID to assist meeting estimated needs; MD agreeable pending orders in EMR at this time. Rec: 1. Continue Na-restricted diet per MD; encourage PO 2. Ensure Enlive BID; monitor PO trends and labs for ONS adjustment needs Addendum: 02/18/23 at [address] Amended: Links added.
[2023-02-18] MEDS: guaiFENesin/DM 10ml UD oral syrup PO PRN (14:11)
[2023-02-18] MEDS ORDERED: CefTRIAXone/D5W-Rocephin 1gm 50 ML IV ONE (15:40)
[2023-02-18 18:00] VITALS: BP 159/90
[2023-02-18] MEDS: lactose-reduced food (Ensure Enlive) - 237ml bottle PO SCH (20:00)
[2023-02-18] MEDS ORDERED: warfarin 1mg tablet PO ONE (21:00)
[2023-02-18] MEDS: latanoprost 0.005% 2.5ml ophthalmic drops EACHEYE SCH (21:24)
[2023-02-18] MEDS: ZAFIRLUKAST 10 MG PO SCH (21:26)
[2023-02-18] MEDS: gabapentin 100mg capsule PO SCH (21:29)
[2023-02-18 22:00] VITALS: BP 162/77
[2023-02-19] MEDS: hydrALAZINE 25 MG tablet PO SCH ×3 (05:56→20:44)
--- NOTE | 2023-02-19 06:18 | NUR ---
Gave report to Ghada COLLINS.
[2023-02-19 07:30] LABS: BASOPHILS % (AUTO) 0.1 % (0-1); EOSINOPHILS % (AUTO) 0 % (0-6); HEMATOCRIT 37.2 % (35.0-45.0); LYMPHOCYTES # (AUTO) 0.2 X10'3 (1.1-4.8); LYMPHOCYTES % (AUTO) 3.2 % (21-51); MEAN CORPUSCULAR HEMOGLOBIN 29.9 PG (27.0-31.0); MEAN CORPUSCULAR HGB CONC 32.1 g/dL (33.0-36.5); MEAN CORPUSCULAR VOLUME 93.2 FL (78-98); MEAN PLATELET VOLUME 8.3 FL (7.4-10.4); MONOCYTES # (AUTO) 0.3 X10'3 (0-0.9); MONOCYTES % (AUTO) 3.6 % (2-12); NEUTROPHILS # (AUTO) 6.5 X10'3 (1.8-7.7); NEUTROPHILS % (AUTO) 93.1 % (42-75); PLATELET COUNT 208 X10'3 (140-440)
[2023-02-19] MEDS: ipratropium/albuterol 3ml nebule NEB PRN (07:34)
[2023-02-19 07:55] LABS: ALANINE AMINOTRANSFERASE 54 U/L (12-78); ALBUMIN 2.9 G/DL (3.4-5.0); ALBUMIN/GLOBULIN RATIO 0.7 (1.1-1.5); ALKALINE PHOSPHATASE 103 IU/L (46-116); ANION GAP 7 (8-16); ASPARTATE AMINO TRANSFERASE 26 U/L (10-37); BILIRUBIN,TOTAL 0.6 MG/DL (0.1-1.0); BLOOD UREA NITROGEN 88 MG/DL (7-18); BUN/CREATININE RATIO 48.9 (10.0-20.0); CALCIUM 10.1 MG/DL (8.5-10.1); CHLORIDE 96 MMOL/L (99-107); GLUCOSE 307 MG/DL (70-104); POTASSIUM 3.6 MMOL/L (3.5-5.1); SODIUM 142 MMOL/L (135-145); TOTAL CARBON DIOXIDE 38.8 MMOL/L (24-32); eGFR 27 ML/MIN
[2023-02-19] MEDS: K and/or MAG REPLACEMENT MC SCH ×2 (08:00→20:00)
[2023-02-19] MEDS: nystatin 15 GM powder TP SCH ×3 (08:00→21:55)
[2023-02-19] MEDS: lactose-reduced food (Ensure Enlive) - 237ml bottle PO SCH ×2 (08:00→20:00)
[2023-02-19] MEDS ORDERED: CefTRIAXone/D5W-Rocephin 1gm 50 ML IV SCH (08:00)
[2023-02-19] MEDS: calcium carbonate/vitamin D3 tablet PO SCH ×2 (08:00→20:43)
[2023-02-19] MEDS: CefTRIAXone/D5W-Rocephin 1gm 50 ML IV SCH (08:00)
[2023-02-19] MEDS: carVEDilol 12.5mg tablet PO SCH ×2 (08:54→20:45)
[2023-02-19] MEDS: sodium bicarbonate 650mg tablet PO SCH (08:54)
[2023-02-19] MEDS: hydrocort. acetate/pramoxine 10gm bottle RC SCH ×2 (08:55→20:45)
[2023-02-19] MEDS: bumetanide 0.25mg/ml 4ml vial IV SCH (08:56)
[2023-02-19] MEDS: OMEGA-3/DHA/EPA/FISH OIL 1 EACH CAPSULE.DR PO SCH (08:56)
[2023-02-19] MEDS: potassium chloride 8mEq ER tablet PO SCH (08:57)
[2023-02-19] MEDS: CITALOpram 10mg tablet PO SCH (08:57)
[2023-02-19] MEDS: docusate sod 100mg capsule PO SCH ×2 (08:58→22:02)
[2023-02-19] MEDS: guaiFENesin ER 600mg tablet PO SCH ×2 (08:58→20:44)
[2023-02-19] MEDS: lisinopril 10 MG tablet PO SCH ×2 (08:59→22:03)
[2023-02-19] MEDS: EMPAGLIFLOZIN 10 MG TABLET PO SCH (08:59)
[2023-02-19] MEDS: atorvastatin 20mg tablet PO SCH (08:59)
[2023-02-19] MEDS: ascorbic acid 500mg tablet PO SCH ×2 (08:59→22:04)
[2023-02-19] MEDS: methylPREDNISolone sod succ/PF 40mg inj. IV SCH ×3 (09:00→16:20)
--- NOTE | 2023-02-19 13:51 | NUR ---
Initial: Pt admit for acute respiratory failure with hypoxemia, CHF, and COPD exacerbation. Pt has been on a 2 g Na restricted diet with 2 L fluid restriction added to diet order today. Pt with average 38% PO intake since admit meeting 61% estimated energy needs and 58% estimated protein needs. Pt now receiving an Ensure Enlive BID and pt documented with 75% PO intake of first ONS. If pt continues with 75% PO intake of ONS and current average meal intake this will meet 100% estimated protein and energy needs. LBM 02/16 per EMR. Pt receiving routine and PRN bowel care, last given today. No further nutrition intervention implemented at this time. Will continue to follow and make recommendations as appropriate. Recommendations: 1. Continue Na-restricted diet with 2 L fluid restriction per MD 2. Ensure Enlive BID; monitor PO trends and labs for ONS adjustment needs 3. Encourage PO intake 4. Routine and PRN bowel care 5. Scaled weight this admit; subsequent weekly scaled weights Addendum: 02/19/23 at [address] Amended: Links added.
[2023-02-19] MEDS: guaiFENesin/DM 10ml UD oral syrup PO PRN (15:10)
--- NOTE | 2023-02-19 15:58 | NUR ---
pt repositioned q2h by nursing staff. pt ambulated 300ft with PT. pt has had 2 bowel movements this shift and has large urine output. pt recieved bed bath. will continue to monitor patient
[2023-02-19] MEDS: hydrALAZINE 20mg/ml inj. IV PRN (17:48)
[2023-02-19 18:00] VITALS: BP 174/83
--- NOTE | 2023-02-19 18:00 | NUR ---
Patient in room [facility]TH[facility] 4022. I have received report from KARINA CRUZ and had the opportunity to ask questions and assume patient care.
--- NOTE | 2023-02-19 18:10 | NUR ---
Patient in room [facility]TH[facility] 4022. I have received report from KARINA CRUZ and had the opportunity to ask questions and assume patient care.
[2023-02-19] MEDS: HALLS - SOOTHE MENTHOL 1.8 MG cough drop LOZENGE MM PRN ×2 (19:08→20:45)
[2023-02-19] MEDS: acetaminophen 325mg tablet PO PRN (19:08)
[2023-02-19 20:32] VITALS: BP 153/63
[2023-02-19] MEDS: gabapentin 100mg capsule PO SCH (20:43)
[2023-02-19] MEDS: ZAFIRLUKAST 10 MG PO SCH (20:46)
[2023-02-19] MEDS: latanoprost 0.005% 2.5ml ophthalmic drops EACHEYE SCH (20:47)
[2023-02-19] MEDS ORDERED: warfarin 1mg tablet PO ONE (21:00)
[2023-02-19 22:00] VITALS: BP 141/63
[2023-02-20] MEDS: methylPREDNISolone sod succ/PF 40mg inj. IV SCH ×2 (00:12→09:00)
[2023-02-20 06:00] VITALS: BP 162/77
--- NOTE | 2023-02-20 06:37 | NUR ---
Problems reprioritized. Patient report given, questions answered & plan of care reviewed with KARINA BURNHAM.
--- NOTE | 2023-02-20 06:45 | NUR ---
Patient in room [facility]TH[facility] 4022. I have received report from Alexandra COLLINS and had the opportunity to ask questions and assume patient care.
[2023-02-20] MEDS: K and/or MAG REPLACEMENT MC SCH (08:00)
[2023-02-20] MEDS: CefTRIAXone/D5W-Rocephin 1gm 50 ML IV SCH (08:00)
[2023-02-20] MEDS: lactose-reduced food (Ensure Enlive) - 237ml bottle PO SCH (08:00)
[2023-02-20] MEDS: hydrocort. acetate/pramoxine 10gm bottle RC SCH (08:56)
[2023-02-20] MEDS: nystatin 15 GM powder TP SCH ×2 (08:57→13:39)
[2023-02-20] MEDS: ascorbic acid 500mg tablet PO SCH (08:57)
[2023-02-20] MEDS: calcium carbonate/vitamin D3 tablet PO SCH (08:59)
[2023-02-20] MEDS: carVEDilol 12.5mg tablet PO SCH (08:59)
[2023-02-20] MEDS: sodium bicarbonate 650mg tablet PO SCH (08:59)
[2023-02-20] MEDS: atorvastatin 20mg tablet PO SCH (08:59)
[2023-02-20] MEDS: hydrALAZINE 25 MG tablet PO SCH ×2 (08:59→13:38)
[2023-02-20] MEDS: EMPAGLIFLOZIN 10 MG TABLET PO SCH (08:59)
[2023-02-20] MEDS: potassium chloride 8mEq ER tablet PO SCH (09:00)
[2023-02-20] MEDS: docusate sod 100mg capsule PO SCH (09:00)
[2023-02-20] MEDS: guaiFENesin ER 600mg tablet PO SCH (09:00)
[2023-02-20] MEDS: OMEGA-3/DHA/EPA/FISH OIL 1 EACH CAPSULE.DR PO SCH (09:00)
[2023-02-20] MEDS: CITALOpram 10mg tablet PO SCH (09:01)
[2023-02-20] MEDS: lisinopril 10 MG tablet PO SCH (09:01)
[2023-02-20] MEDS: bumetanide 0.25mg/ml 4ml vial IV SCH (09:09)
[2023-02-20 10:00] VITALS: BP 177/81
[2023-02-20] MEDS ORDERED: cholecalciferol (vitamin D3) 1,000 unit (25mcg) tablet PO SCH (11:52)
[2023-02-20 13:38] VITALS: BP_SYST 89
--- NOTE | 2023-02-20 17:03 | NUR ---
patient up with PT see note. Seen by DR Werner, is for discharge. All DC instructions given to patient and daughter. Home health arranged by protective services case worker Lori. Patient DC home via private car in stable condition
[2023-02-20] MEDS ORDERED: warfarin 3mg tablet PO ONE (21:00)
== END 2023-02-20 15:12 | disposition home health service (06) | DRG 189 ==
LOC: ER 12:29 → ED HOLD 14:11 → ORTHO 4S 19:29
PROVIDERS: ADMIT Internal Medicine; ATTEND Internal Medicine
DX: J96.21 Acute and chronic respiratory failure with hypoxia (principal); I50.33 Acute on chronic diastolic (congestive) heart failure; I13.0 Hypertensive heart and chronic kidney disease with heart failure and stage 1 through stage 4 chronic kidney disease, or unspecified chronic kidney disease; J44.1 Chronic obstructive pulmonary disease with (acute) exacerbation; N18.4 Chronic kidney disease, stage 4 (severe); N39.0 Urinary tract infection, site not specified; D50.9 Iron deficiency anemia, unspecified; E11.22 Type 2 diabetes mellitus with diabetic chronic kidney disease; G47.30 Sleep apnea, unspecified; B96.20 Unspecified Escherichia coli [E. coli] as the cause of diseases classified elsewhere; E78.00 Pure hypercholesterolemia, unspecified; I48.91 Unspecified atrial fibrillation; Z79.01 Long term (current) use of anticoagulants; Z79.899 Other long term (current) drug therapy; Z80.0 Family history of malignant neoplasm of digestive organs; Z80.3 Family history of malignant neoplasm of breast; Z82.49 Family history of ischemic heart disease and other diseases of the circulatory system; Z83.3 Family history of diabetes mellitus; Z84.1 Family history of disorders of kidney and ureter; Z85.41 Personal history of malignant neoplasm of cervix uteri; Z86.73 Personal history of transient ischemic attack (TIA), and cerebral infarction without residual deficits; Z88.2 Allergy status to sulfonamides; Z88.0 Allergy status to penicillin; Z90.49 Acquired absence of other specified parts of digestive tract; Z99.81 Dependence on supplemental oxygen; Z98.42 Cataract extraction status, left eye; Z98.41 Cataract extraction status, right eye
CPT/HCPCS: 36415; 70450; 71045; 80053; 81001; 82607; 82728; 83036; 83540; 83550; 83605; 83735; 83880; 84145; 84439; 84443; 84484; 85025; 85610; 87077; 87081; 87088; 87186; 93005; 93306; 94640; 94760; 97110; 97116; 97161; 97530; 97535; 99285; A6250; A6449; G0378; J0360; J0696; J1750; J1940; J2920; J3490; J7030; J7040